=== PATIENT | male | born 1990 | race Caucasian/White ===

== ENCOUNTER 2022-02-10 15:27 | Inpatient (IN) | payer MEDICAID, SELFPAY ==
--- NOTE | ~2022-02-10 | XR_ITS ---
EXAMINATION: XR CHEST CLINICAL INFORMATION: Evaluate for pneumonia. COMPARISON: None. TECHNIQUE: AP view of the chest was obtained. FINDINGS: Normal appearance of the cardiomediastinal silhouette. There is interstitial prominence, more noticeable centrally and in the lower lungs. There is a questionable more focal hazy opacity in the left lower lobe. No pneumothorax or pleural effusion. No acute osseous abnormalities. XR/XR chest 1V IMPRESSION: Increased interstitial prominence is nonspecific and could be associated with asthma, bronchitis, reactive airways disease or atypical viral infections. There is also a questionable more focal area of airspace disease in the left lower lobe in which an early infiltrate cannot be excluded.
[2022-02-10 15:56] VITALS: BP 138/62; PULSE 112; RESP 22; TEMP 36.8; O2SAT 93; BMI 22.8
--- NOTE | 2022-02-10 16:02 | ECG_ITS ---
Test Reason : SHORTNESS OF BREATH Blood Pressure : / mmHG Vent. Rate : 096 BPM Atrial Rate : 096 BPM P-R Int : 162 ms QRS Dur : 084 ms QT Int : 322 ms P-R-T Axes : 077 077 069 degrees QTc Int : 406 ms Normal sinus rhythm Normal ECG No previous ECGs available Referred By: Zi Gongora Electronically Signed By:SHAHANA MATHUR
--- NOTE | 2022-02-10 16:03 | ED_ITS ---
HPI - General Adult General Chief complaint: Dyspnea <JULIANNE Razo - Last Filed: 02/11/22 08:12> Stated complaint: diff. breathing <JULIANNE Razo - Last Filed: 02/11/22 08:12> Time Seen by Provider: 02/10/22 15:59 <JULIANNE Razo - Last Filed: 02/11/22 08:12> Source: patient <Amynaomi Waldropzahraa Flores CNP - Last Filed: 02/10/22 18:05> Mode of arrival: ambulatory <Amy Flores CNP - Last Filed: 02/10/22 18:05> Limitations: no limitations <Amy Flores CNP - Last Filed: 02/10/22 18:05> History of Present Illness HPI narrative: Patient is a 31-year-old male presenting to emergency department for evaluation of difficulty breathing. States that about 1 week ago he developed into the, this improved on its own. Over the past 2 days and began developing shortness of breath and wheezing, he trialed his sister's nebulizer machine without significant improvement. He denies any past history of asthma or reactive airway disease. Denies fevers, chills, nasal congestion, rhinorrhea, ear pain, sore throat, chest pain/chest tightness, palpitations, nausea, vomiting, abdominal pain, lower extremity edema. Reports infrequent cigarette smoking, denies IV drug use, denies personal history of cancer/DVT/PE, denies recent surgical procedures or prolonged immobilization. <Amy Flores CNP - Last Filed: 02/10/22 18:05> Related Data Home medications: Home Medications Medication Instructions Recorded Confirmed No Known Home Meds 02/10/22 02/10/22 <JULIANNE Razo - Last Filed: 02/11/22 08:12> Allergies/adverse reactions: Allergies Allergy/AdvReac Type Severity Reaction Status Date / Time No Known Allergies Allergy Verified 02/10/22 15:59 <JULIANNE Razo Last Filed: 02/11/22 08:12> Review of Systems Review of Systems: Constitutional: No weight loss, fever, chills, weakness or fatigue. HEENT: No blurred vision, double vision. No hearing loss, no ear pain, sneezing, congestion, runny nose or sore throat. Skin: No rash or itching. Cardiovascular: No chest pain, chest pressure or chest discomfort. No palpitations or pedal edema. Respiratory: Positive shortness of breath, positive cough Gastrointestinal: No nausea, vomiting or diarrhea. No abdominal pain Genitourinary: No burning micturition. No urinary frequency or incontinence. Neurologic: No headache, dizziness, syncope Musculoskeletal: No muscle pain, back pain, joint pain or stiffness. Hematologic: No bleeding or bruising. Lymphatics: No enlarged lymph nodes. <Amy Flores CNP - Last Filed: 02/10/22 18:05> Yes all other systems are reviewed and are negative <Amy Flores CNP - Last Filed: 02/10/22 18:05> [facility] Past Medical History Attestation statement: The following information was validated with the patient. <Amy Flores CNP - Last Filed: 02/10/22 18:05> Source: old records reviewed <Amy Flores CNP - Last Filed: 02/10/22 18:05> Medical History: Medical History Asthma Rickets, <JULIANNE Razo - Last Filed: 02/11/22 08:12> Social History Social History: Social History Alcohol intake: current Alcohol intake frequency: 0-2 drinks per day Patient Tobacco Use Status: Current someday Tobacco user Smoked in Last 30 Days: Yes Use of substances other than those prescribed or required for medical reasons: Yes Substance Use Type: Marijuana Substance Use Frequency: Occasionally Advance Directives: No Advance Directives Information Provided: No <JULIANNE Razo - Last Filed: 02/11/22 08:12> Physical Exam ED Vital Signs: Vital Signs - 24 hr 02/10/22 15:56 02/10/22 16:29 02/10/22 17:49 Temperature 98.3 F Pulse Rate 112 H 96 94 Respiratory Rate 22 H 10 L 20 Blood Pressure 138/62 131/86 Pulse Oximetry 93 94 BMI result Body Mass Index 22.8 <JULIANNE Razo - Last Filed: 02/11/22 08:12> Vital Signs - 24 hr 02/10/22 15:56 02/10/22 16:29 02/10/22 17:49 Temperature 98.3 F Pulse Rate 112 H 96 94 Respiratory Rate 22 H 10 L 20 Blood Pressure 138/62 131/86 Pulse Oximetry 93 94 BMI result Body Mass Index 22.8 Vital signs have been reviewed and appeared to be correct. Blood pressure normal.? Tachycardia? Respiration rate normal. Temperature normal.? Oxygen saturation normal. <Amy Flores CNP - Last Filed: 02/10/22 18:05> Appearance: Alert.?Oriented to person, place and time. No acute distress .?Normal affect. Eyes: Pupils equal, round and reactive to light.?EOMi ENT: EAC clear, TM normal bilaterally. Pharynx normal.?? Neck: Normal inspection.? Neck supple.?? CVS: Heart sounds normal. Normal heart rate and rhythm.? Pulses normal.?? Respiratory: Increased work of breathing, use of accessory muscle, inspiratory and expiratory wheezing bilaterally Abdomen: Soft and non-tender. Normoactive bowel sounds. No pulsatile mass.?? Skin: Skin warm and dry.? Normal skin color.? Extremities: No lower extremity edema.? Neuro: Moves all extremities spontaneously. Sensation intact bilaterally. CN II- XII intact. No focal neuro deficits. Ambulates with normal steady gait. <Amy Flores CNP - Last Filed: 02/10/22 18:05> Course Course Course Narrative: Patient presents to the ED for wheezing and SOB that began this morning. Intivial vital signs are 92-93% on room air and HR of 119. Labs, EKG, patient placed on oxygen, albuterol, magnesium, solumedrol ordered. patient to be brought to a room by nurse cline.. Patient has inspiratory and expiratory wheezing <JULIANNE Razo - Last Filed: 02/11/22 08:12> Reevaluation(s) Reevaluation #1: First contact with patient after rapid medical screening from Rol[facility]AKER. patient has received albuterol and Solu-Medrol, reports improvement in feelings of shortness of breath. Maintaining O2 saturation between 94-97% via nasal cannula during history and physical exam, tachcardia 110-115. EKG reveals normal sinus rhythm with nonspecific ST change in lead II, III, troponin <3.5, unlikely ACS. CBC and CMP are overall unremarkable. BNP is normal. D-dimer <150. Chest x-ray reveals increased interstitial prominence that could be associated with asthma, bronchitis, atypical viral infections, and questionable area of the left lower lobe which may be early infiltrate. Given tachycardia and tachypnea patient meets SIRS criteria, will order blood cultures and lactic acid in addition to ceftriaxone to cover bacterial pneumonia. <Amy Flores CNP - Last Filed: 02/10/22 18:05> Time: 16:48 <Amy Flores CNP - Last Filed: 02/10/22 18:05> Reevaluation #2: Patient's mother called, states that patient has a history of childhood asthma. He has not been on inhalers for many years. She does suspect that the possibility of exposure to pet dander including the cat and dog in the home where he is currently residing may be exacerbating this, he has only ever been around non allergenic dogs in his past. Walking O2 trial, O2 saturation down to 89%, at rest room air saturation 90-92%. COVID-19 and influenza testing are negative. Consulting medicine service for hospital admission, Padmini Ansari NP who accepted patient for admission. <Amy Flores CNP - Last Filed: 02/10/22 18:05> Time: 17:37 <Amy Flores CNP - Last Filed: 02/10/22 18:05> Medical Decision Making Medical Records Medical records reviewed: Yes I reviewed the patient's medical records. <Amy Flores CNP - Last Filed: 02/10/22 18:05> Lab Data Lab results reviewed: Yes I reviewed the patient's lab results. <Amy Flores CNP - Last Filed: 02/10/22 18:05> Result diagrams: : 02/11/22 07:38 02/10/22 16:15 <JULIANNE Razo - Last Filed: 02/11/22 08:12> Labs: Lab Results 02/10/22 02/10/22 02/10/22 Range/Units 16:14 16:15 16:15 WBC 7.8 (4.8-10.8) X10*3/uL RBC 5.57 (4.60-5.80) X10*6/uL Hgb 15.9 (14.0-18.0) g/dl Hct 47.8 (42.0-52.0) % MCV 85.8 (80.0-98.0) fL MCH 28.5 (27.0-33.0) pg MCHC 33.3 (31.0-36.0) g/dl RDW 12.8 (11.0-16.0) % Plt Count 273 (160-400) X10*3/uL MPV 8.9 L (9.4-12.4) fL Immature Gran % (Auto) 0.4 (0.0-0.4) % Neut % (Auto) 58.7 (45-73) % Lymph % (Auto) 18.2 L (20-40) % [place] % (Auto) 15.7 H (2-11) % Eos % (Auto) 6.4 H (0-4) % Baso % (Auto) 0.6 (0-2) % Lymph # (Auto) 1.4 (1.2-4.9) X10*3/uL [place] # (Auto) 1.2 (0.1-1.2) X10*3/uL Eos # (Auto) 0.5 H (0.0-0.4) X10*3/uL Baso # (Auto) 0.1 (0.0-0.2) X10*3/uL Abs Immat Gran (auto) 0.03 (0.00-0.03) X10*3/uL Absolute Neuts (auto) 4.6 (2.0-8.3) x10*3/uL Absolute Nucleated RBC 0.000 (0.0-0.012) X10*3/uL Nucleated RBC % (auto) 0.0 (0.0-0.2) /100WBC PT (9.9-13.0) SEC INR (0.9-1.1) APTT (24.1-38.0) SEC D-Dimer High Sensitivty NG/ML Sodium 138 (135-145) mmol/L Potassium 4.2 (3.3-5.1) mmol/L Chloride 105 (96-108) mmol/L Carbon Dioxide 26 (22-29) mmol/L Anion Gap 11 L (12-20) BUN 15 (9-16) mg/dL Creatinine 1.05 (0.5-1.4) mg/dL Estim Creat Clear Calc 97.1 Estimated GFR > 60 Random Glucose 86 (60-115) mg/dL Lactic Acid (0.5-2.0) mmol/L Calcium 10.0 (8.4-10.2) mg/dL Ferritin 159 (20-250) ng/mL Total Bilirubin 0.9 (0.0-1.0) mg/dL AST 17 (5-37) U/L ALT 24 (0-40) U/L Alkaline Phosphatase 104 (39-117) U/L Lactate Dehydrogenase 160 (118-273) U/L Troponin I High Sens (<3.5-35.0) ng/L B-Natriuretic Peptide (<100) pg/mL Total Protein 7.9 (6.5-8.0) g/dL Albumin 4.9 (3.5-5.0) g/dL Procalcitonin 0.03 ng/mL COVID-19 (NATHANAEL) (Negative) COVID-19 Clin Com Influenza Type A (MARIFER) (Negative) Influenza Type B (MARIFER) (Negative) Influenza A & B Note 02/10/22 02/10/22 02/10/22 Range/Units 16:15 16:15 17:23 WBC (4.8-10.8) X10*3/uL RBC (4.60-5.80) X10*6/uL Hgb (14.0-18.0) g/dl Hct (42.0-52.0) % MCV (80.0-98.0) fL MCH (27.0-33.0) pg MCHC (31.0-36.0) g/dl RDW (11.0-16.0) % Plt Count (160-400) X10*3/uL MPV (9.4-12.4) fL Immature Gran % (Auto) (0.0-0.4) % Neut % (Auto) (45-73) % Lymph % (Auto) (20-40) % [place] % (Auto) (2-11) % Eos % (Auto) (0-4) % Baso % (Auto) (0-2) % Lymph # (Auto) (1.2-4.9) X10*3/uL [place] # (Auto) (0.1-1.2) X10*3/uL Eos # (Auto) (0.0-0.4) X10*3/uL Baso # (Auto) (0.0-0.2) X10*3/uL Abs Immat Gran (auto) (0.00-0.03) X10*3/uL Absolute Neuts (auto) (2.0-8.3) x10*3/uL Absolute Nucleated RBC (0.0-0.012) X10*3/uL Nucleated RBC % (auto) (0.0-0.2) /100WBC PT 12.3 (9.9-13.0) SEC INR 1.1 (0.9-1.1) APTT 34.9 (24.1-38.0) SEC D-Dimer High Sensitivty < 150 NG/ML Sodium (135-145) mmol/L Potassium (3.3-5.1) mmol/L Chloride (96-108) mmol/L Carbon Dioxide (22-29) mmol/L Anion Gap (12-20) BUN (9-16) mg/dL Creatinine (0.5-1.4) mg/dL Estim Creat Clear Calc Estimated GFR Random Glucose (60-115) mg/dL Lactic Acid 1.0 (0.5-2.0) mmol/L Calcium (8.4-10.2) mg/dL Ferritin (20-250) ng/mL Total Bilirubin (0.0-1.0) mg/dL AST (5-37) U/L ALT (0-40) U/L Alkaline Phosphatase (39-117) U/L Lactate Dehydrogenase (118-273) U/L Troponin I High Sens < 3.5 (<3.5-35.0) ng/L B-Natriuretic Peptide 14 (<100) pg/mL Total Protein (6.5-8.0) g/dL Albumin (3.5-5.0) g/dL Procalcitonin ng/mL COVID-19 (NATHANAEL) (Negative) COVID-19 Clin Com Influenza Type A (MARIFER) (Negative) Influenza Type B (MARIFER) (Negative) Influenza A & B Note 02/10/22 02/10/22 Range/Units 17:23 17:23 WBC (4.8-10.8) X10*3/uL RBC (4.60-5.80) X10*6/uL Hgb (14.0-18.0) g/dl Hct (42.0-52.0) % MCV (80.0-98.0) fL MCH (27.0-33.0) pg MCHC (31.0-36.0) g/dl RDW (11.0-16.0) % Plt Count (160-400) X10*3/uL MPV (9.4-12.4) fL Immature Gran % (Auto) (0.0-0.4) % Neut % (Auto) (45-73) % Lymph % (Auto) (20-40) % [place] % (Auto) (2-11) % Eos % (Auto) (0-4) % Baso % (Auto) (0-2) % Lymph # (Auto) (1.2-4.9) X10*3/uL [place] # (Auto) (0.1-1.2) X10*3/uL Eos # (Auto) (0.0-0.4) X10*3/uL Baso # (Auto) (0.0-0.2) X10*3/uL Abs Immat Gran (auto) (0.00-0.03) X10*3/uL Absolute Neuts (auto) (2.0-8.3) x10*3/uL Absolute Nucleated RBC (0.0-0.012) X10*3/uL Nucleated RBC % (auto) (0.0-0.2) /100WBC PT (9.9-13.0) SEC INR (0.9-1.1) APTT (24.1-38.0) SEC D-Dimer High Sensitivty NG/ML Sodium (135-145) mmol/L Potassium (3.3-5.1) mmol/L Chloride (96-108) mmol/L Carbon Dioxide (22-29) mmol/L Anion Gap (12-20) BUN (9-16) mg/dL Creatinine (0.5-1.4) mg/dL Estim Creat Clear Calc Estimated GFR Random Glucose (60-115) mg/dL Lactic Acid (0.5-2.0) mmol/L Calcium (8.4-10.2) mg/dL Ferritin (20-250) ng/mL Total Bilirubin (0.0-1.0) mg/dL AST (5-37) U/L ALT (0-40) U/L Alkaline Phosphatase (39-117) U/L Lactate Dehydrogenase (118-273) U/L Troponin I High Sens (<3.5-35.0) ng/L B-Natriuretic Peptide (<100) pg/mL Total Protein (6.5-8.0) g/dL Albumin (3.5-5.0) g/dL Procalcitonin ng/mL COVID-19 (NATHANAEL) Negative (Negative) COVID-19 Clin Com See Note Influenza Type A (MARIFER) Negative (Negative) Influenza Type B (MARIFER) Negative (Negative) Influenza A & B Note See Note <JULIANNE Razo - Last Filed: 02/11/22 08:12> Lab Results 02/10/22 02/10/22 02/10/22 Range/Units 16:14 16:15 16:15 WBC 7.8 (4.8-10.8) X10*3/uL RBC 5.57 (4.60-5.80) X10*6/uL Hgb 15.9 (14.0-18.0) g/dl Hct 47.8 (42.0-52.0) % MCV 85.8 (80.0-98.0) fL MCH 28.5 (27.0-33.0) pg MCHC 33.3 (31.0-36.0) g/dl RDW 12.8 (11.0-16.0) % Plt Count 273 (160-400) X10*3/uL MPV 8.9 L (9.4-12.4) fL Immature Gran % (Auto) 0.4 (0.0-0.4) % Neut % (Auto) 58.7 (45-73) % Lymph % (Auto) 18.2 L (20-40) % [place] % (Auto) 15.7 H (2-11) % Eos % (Auto) 6.4 H (0-4) % Baso % (Auto) 0.6 (0-2) % Lymph # (Auto) 1.4 (1.2-4.9) X10*3/uL [place] # (Auto) 1.2 (0.1-1.2) X10*3/uL Eos # (Auto) 0.5 H (0.0-0.4) X10*3/uL Baso # (Auto) 0.1 (0.0-0.2) X10*3/uL Abs Immat Gran (auto) 0.03 (0.00-0.03) X10*3/uL Absolute Neuts (auto) 4.6 (2.0-8.3) x10*3/uL Absolute Nucleated RBC 0.000 (0.0-0.012) X10*3/uL Nucleated RBC % (auto) 0.0 (0.0-0.2) /100WBC PT (9.9-13.0) SEC INR (0.9-1.1) APTT (24.1-38.0) SEC D-Dimer High Sensitivty NG/ML Sodium 138 (135-145) mmol/L Potassium 4.2 (3.3-5.1) mmol/L Chloride 105 (96-108) mmol/L Carbon Dioxide 26 (22-29) mmol/L Anion Gap 11 L (12-20) BUN 15 (9-16) mg/dL Creatinine 1.05 (0.5-1.4) mg/dL Estim Creat Clear Calc 97.1 Estimated GFR > 60 Random Glucose 86 (60-115) mg/dL Lactic Acid (0.5-2.0) mmol/L Calcium 10.0 (8.4-10.2) mg/dL Ferritin 159 (20-250) ng/mL Total Bilirubin 0.9 (0.0-1.0) mg/dL AST 17 (5-37) U/L ALT 24 (0-40) U/L Alkaline Phosphatase 104 (39-117) U/L Lactate Dehydrogenase 160 (118-273) U/L Troponin I High Sens (<3.5-35.0) ng/L B-Natriuretic Peptide (<100) pg/mL Total Protein 7.9 (6.5-8.0) g/dL Albumin 4.9 (3.5-5.0) g/dL Procalcitonin 0.03 ng/mL COVID-19 (NATHANAEL) (Negative) COVID-19 Clin Com Influenza Type A (MARIFER) (Negative) Influenza Type B (MARIFER) (Negative) Influenza A & B Note 02/10/22 02/10/22 02/10/22 Range/Units 16:15 16:15 17:23 WBC (4.8-10.8) X10*3/uL RBC (4.60-5.80) X10*6/uL Hgb (14.0-18.0) g/dl Hct (42.0-52.0) % MCV (80.0-98.0) fL MCH (27.0-33.0) pg MCHC (31.0-36.0) g/dl RDW (11.0-16.0) % Plt Count (160-400) X10*3/uL MPV (9.4-12.4) fL Immature Gran % (Auto) (0.0-0.4) % Neut % (Auto) (45-73) % Lymph % (Auto) (20-40) % [place] % (Auto) (2-11) % Eos % (Auto) (0-4) % Baso % (Auto) (0-2) % Lymph # (Auto) (1.2-4.9) X10*3/uL [place] # (Auto) (0.1-1.2) X10*3/uL Eos # (Auto) (0.0-0.4) X10*3/uL Baso # (Auto) (0.0-0.2) X10*3/uL Abs Immat Gran (auto) (0.00-0.03) X10*3/uL Absolute Neuts (auto) (2.0-8.3) x10*3/uL Absolute Nucleated RBC (0.0-0.012) X10*3/uL Nucleated RBC % (auto) (0.0-0.2) /100WBC PT 12.3 (9.9-13.0) SEC INR 1.1 (0.9-1.1) APTT 34.9 (24.1-38.0) SEC D-Dimer High Sensitivty < 150 NG/ML Sodium (135-145) mmol/L Potassium (3.3-5.1) mmol/L Chloride (96-108) mmol/L Carbon Dioxide (22-29) mmol/L Anion Gap (12-20) BUN (9-16) mg/dL Creatinine (0.5-1.4) mg/dL Estim Creat Clear Calc Estimated GFR Random Glucose (60-115) mg/dL Lactic Acid 1.0 (0.5-2.0) mmol/L Calcium (8.4-10.2) mg/dL Ferritin (20-250) ng/mL Total Bilirubin (0.0-1.0) mg/dL AST (5-37) U/L ALT (0-40) U/L Alkaline Phosphatase (39-117) U/L Lactate Dehydrogenase (118-273) U/L Troponin I High Sens < 3.5 (<3.5-35.0) ng/L B-Natriuretic Peptide 14 (<100) pg/mL Total Protein (6.5-8.0) g/dL Albumin (3.5-5.0) g/dL Procalcitonin ng/mL COVID-19 (NATHANAEL) (Negative) COVID-19 Clin Com Influenza Type A (MARIFER) (Negative) Influenza Type B (MARIFER) (Negative) Influenza A & B Note 02/10/22 02/10/22 Range/Units 17:23 17:23 WBC (4.8-10.8) X10*3/uL RBC (4.60-5.80) X10*6/uL Hgb (14.0-18.0) g/dl Hct (42.0-52.0) % MCV (80.0-98.0) fL MCH (27.0-33.0) pg MCHC (31.0-36.0) g/dl RDW (11.0-16.0) % Plt Count (160-400) X10*3/uL MPV (9.4-12.4) fL Immature Gran % (Auto) (0.0-0.4) % Neut % (Auto) (45-73) % Lymph % (Auto) (20-40) % [place] % (Auto) (2-11) % Eos % (Auto) (0-4) % Baso % (Auto) (0-2) % Lymph # (Auto) (1.2-4.9) X10*3/uL [place] # (Auto) (0.1-1.2) X10*3/uL Eos # (Auto) (0.0-0.4) X10*3/uL Baso # (Auto) (0.0-0.2) X10*3/uL Abs Immat Gran (auto) (0.00-0.03) X10*3/uL Absolute Neuts (auto) (2.0-8.3) x10*3/uL Absolute Nucleated RBC (0.0-0.012) X10*3/uL Nucleated RBC % (auto) (0.0-0.2) /100WBC PT (9.9-13.0) SEC INR (0.9-1.1) APTT (24.1-38.0) SEC D-Dimer High Sensitivty NG/ML Sodium (135-145) mmol/L Potassium (3.3-5.1) mmol/L Chloride (96-108) mmol/L Carbon Dioxide (22-29) mmol/L Anion Gap (12-20) BUN (9-16) mg/dL Creatinine (0.5-1.4) mg/dL Estim Creat Clear Calc Estimated GFR Random Glucose (60-115) mg/dL Lactic Acid (0.5-2.0) mmol/L Calcium (8.4-10.2) mg/dL Ferritin (20-250) ng/mL Total Bilirubin (0.0-1.0) mg/dL AST (5-37) U/L ALT (0-40) U/L Alkaline Phosphatase (39-117) U/L Lactate Dehydrogenase (118-273) U/L Troponin I High Sens (<3.5-35.0) ng/L B-Natriuretic Peptide (<100) pg/mL Total Protein (6.5-8.0) g/dL Albumin (3.5-5.0) g/dL Procalcitonin ng/mL COVID-19 (NATHANAEL) Negative (Negative) COVID-19 Clin Com See Note Influenza Type A (MARIFER) Negative (Negative) Influenza Type B (MARIFER) Negative (Negative) Influenza A & B Note See Note <Amy Flores FIRE CLAIMS ADJUSTER - Last Filed: 02/10/22 18:05> Imaging Data Chest x-ray: Radiologist's impression: XR/XR chest 1V IMPRESSION: Increased interstitial prominence is nonspecific and could be associated with asthma, bronchitis, reactive airways disease or atypical viral infections. ? There is also a questionable more focal area of airspace disease in the left lower lobe in which an early infiltrate cannot be excluded. <Amynaomi Flores CNP - Last Filed: 02/10/22 18:05> ECG Data Attestation: I personally reviewed and interpreted this ECG as follows: <Amynaomi Flores CNP - Last Filed: 02/10/22 18:05> Prior ECG tracings: not available for review <Amynaomi Flores CNP - Last Filed: 02/10/22 18:05> Interpretation: Rate: 96 Rhythm:? Normal sinus rhythm [place]:? Normal Normal P waves.? Normal HEUY.?? Normal QRS complex.?? ST T wave :??Nonspecific ST changes in lead II and III qTC: 406 prior studies:? None The study has been interpreted contemporaneously by me. <Amynaomi Flores CNP - Last Filed: 02/10/22 18:05> Critical Care Time Critical Care Time Critical Care Time: Yes <Amynaomi Flores CNP - Last Filed: 02/10/22 18:05> Total Critical Care Time: 60 <Amynaomi Flores CNP - Last Filed: 02/10/22 18:05> Attestation: I personally attest to this time spent taking care of the patient <Amy Flores CNP - Last Filed: 02/10/22 18:05> Discharge Plan Discharge Clinical Impression: Community acquired pneumonia <JULIANNE Razo - Last Filed: 02/11/22 08:12> Patient Disposition: Admitted As Inpatient <JULIANNE Razo - Last Filed: 02/11/22 08:12>
[2022-02-10 16:21] LABS: Basophils Absolute Auto 0.1 X10*3/uL (0.0-0.2); Basophils Percent Auto 0.6 % (0-2); Eosinophils Absolute Auto 0.5 X10*3/uL (0.0-0.4); Eosinophils Percent Auto 6.4 % (0-4); Hematocrit 47.8 % (42.0-52.0); Hemoglobin 15.9 g/dl (14.0-18.0); Imm Gran Abs Auto 0.03 X10*3/uL (0.00-0.03); Imm Gran Pct Auto 0.4 % (0.0-0.4); Lymphocytes Absolute Auto 1.4 X10*3/uL (1.2-4.9); Lymphocytes Percent Auto 18.2 % (20-40); MANUAL DIFF FLAG NO; Mean Corpuscular HGB Conc 33.3 g/dl (31.0-36.0); Mean Corpuscular Hemoglobin 28.5 pg (27.0-33.0); Mean Corpuscular Volume 85.8 fL (80.0-98.0); Mean Platelet Volume 8.9 fL (9.4-12.4); Monocytes Absolute Auto 1.2 X10*3/uL (0.1-1.2); Monocytes Percent Auto 15.7 % (2-11); Neutrophils Absolute Auto 4.6 x10*3/uL (2.0-8.3); Neutrophils Percent Auto 58.7 % (45-73); Platelet Count 273 X10*3/uL (160-400); Red Blood Count 5.57 X10*6/uL (4.60-5.80); Red Cell Distribution Width 12.8 % (11.0-16.0); White Blood Count 7.8 X10*3/uL (4.8-10.8)
[2022-02-10] MEDS: methylPREDNISolone Sod Succ 125 MG/2 ML VIAL IVPUSH (16:21)
[2022-02-10] MEDS: Magnesium Sulfate/H2O 2 GM/50 ML PIGGYBACK IV (16:21)
[2022-02-10 16:27] LABS: INTERNATIONAL NORM RATIO 1.1 (0.9-1.1); Prothrombin Time 12.3 SEC (9.9-13.0)
[2022-02-10 16:29] VITALS: PULSE 96; RESP 10; O2SAT 95
[2022-02-10 16:29] LABS: Partial Thromboplastin Time 34.9 SEC (24.1-38.0)
[2022-02-10] MEDS: Albuterol/Iprat 2.5/0.5MG 3 ML AMPUL.NEB INHALE ×2 (16:29→19:58)
[2022-02-10 16:38] LABS: Alanine Aminotransferase 24 U/L (0-40); Albumin Level 4.9 g/dL (3.5-5.0); Alkaline Phosphatase 104 U/L (39-117); Anion Gap 11 (12-20); Aspartate Amino Transferase 17 U/L (5-37); Bilirubin Total 0.9 mg/dL (0.0-1.0); Blood Urea Nitrogen 15 mg/dL (9-16); Carbon Dioxide 26 mmol/L (22-29); Chloride 105 mmol/L (96-108); Creatinine Clr Calc Pharmacy 97.1; Estimated Glomerular Filt Rate > 60; Glucose Random 86 mg/dL (60-115); Lactate Dehydrogenase 160 U/L (118-273); Potassium 4.2 mmol/L (3.3-5.1); Sodium 138 mmol/L (135-145); Total Protein 7.9 g/dL (6.5-8.0)
[2022-02-10 16:44] LABS: B Type Natriuretic Peptide 14 pg/mL (<100); Troponin-I High Sensitivity < 3.5 ng/L (<3.5-35.0)
[2022-02-10 16:47] LABS: D Dimer High Sensitivity < 150 NG/ML
[2022-02-10 16:56] LABS: Procalcitonin 0.03 ng/mL
[2022-02-10 16:58] LABS: Ferritin 159 ng/mL (20-250)
[2022-02-10] MEDS: cefTRIAXone sodium 1 GM in 0.9 % Sodium Chloride 50 ML IV (17:40)
[2022-02-10 17:49] VITALS: BP 131/86; PULSE 94; RESP 20; O2SAT 94
[2022-02-10 17:50] LABS: COVID-19 Test Negative (Negative); IDNOW Serial# 55D5AD1C; Influenza A Negative (Negative); Influenza B2 Negative (Negative)
--- NOTE | 2022-02-10 18:09 | PHA.MEDREC ---
Pharmacy Consult ? Medication Reconciliation Pharmacy has completed the medication reconciliation.
--- NOTE | 2022-02-10 19:13 | PHA.MEDREC ---
Pharmacy Consult ? Medication Reconciliation Pharmacy has completed the medication reconciliation.
--- NOTE | 2022-02-10 19:18 | P.HPHOSP_ITS ---
History of Present Illness Date of Service: 02/10/22 Chief Complaint: Shortness of breath 31-year-old male with a past medical history of cannabis use presented to the hospital with a chief complaint of shortness of breath. Patient reported that he has been having shortness over the past 1 week which has been gradually worsening. Mentioned that he tried nebulizers at home with no significant improvement. For the past 2 days he has been having increase the symptoms as noted with cough. Denies any fevers and chills. Denies any sputum production Denies any sick contacts. Denies any recent travel. Denies any chest pain palpitations lightheadedness or dizziness. Denies any GI symptoms. Review of all other systems is negative except mentioned above ER course: Per ER team patient on presentation noted to be in mild respiratory distress, tachypneic, tachycardic; D-dimer was negative; EKG was nonischemic; troponin negative; patient noted to have bilateral inspiratory and expiratory wheezes; patient was saturating 89% upon ambulation; patient was given nebulizations steroids; chest x-ray showed possible pneumonia/increased interstitial markings; given antibiotics. Admitted for further management. [facility] Medical History Asthma Rickets, Pertinent family history: Adopted Social History Advance Directives: No Advance Directives Information Provided: No Meds Allergies Allergy/AdvReac Type Severity Reaction Status Date / Time No Known Allergies Allergy Verified 02/10/22 15:59 Active Medications: Current Medications Pharmacy Consult (Consult Rx Perform Med Rec) 1 each MISCELLANE ONCE PRN PRN Reason: Consult order Home Medications Medication Instructions Recorded Confirmed Last Taken Type No Known Home Meds 02/10/22 02/10/22 Unknown History Physical Exam Vital Signs and Narrative: Vital Signs: Last Vital Signs Temp 98.3 F 02/10/22 15:56 Pulse 94 02/10/22 17:49 Resp 20 02/10/22 17:49 BP 131/86 02/10/22 17:49 Pulse Ox 94 02/10/22 17:49 BMI result Body Mass Index 22.8 Gen: Appears be in no acute distress. On supplemental oxygen. Breathing comfortably. Speaks in full sentences. HEENT: NCAT, Moist mucosa. Pulmonary: Coarse breath sounds. Wheezes present. CVS: Normal S1-S2 Abdomen: BS+, Soft, Nontender Extremities: Warm well perfused Neuro: Alert and awake. Results Labs CBC and Chem 7: 02/10/22 16:15 02/10/22 16:15 Labs: Laboratory Results - last 24 hr 02/10/22 02/10/22 02/10/22 16:14 16:15 16:15 MCV 85.8 MCH 28.5 MCHC 33.3 RDW 12.8 Plt Count 273 MPV 8.9 L Immature Gran % (Auto) 0.4 Neut % (Auto) 58.7 Lymph % (Auto) 18.2 L [place] % (Auto) 15.7 H Eos % (Auto) 6.4 H Baso % (Auto) 0.6 Lymph # (Auto) 1.4 [place] # (Auto) 1.2 Eos # (Auto) 0.5 H Baso # (Auto) 0.1 Abs Immat Gran (auto) 0.03 Absolute Neuts (auto) 4.6 Absolute Nucleated RBC 0.000 Nucleated RBC % (auto) 0.0 PT INR APTT D-Dimer High Sensitivty Anion Gap 11 L Estim Creat Clear Calc 97.1 Estimated GFR > 60 Random Glucose 86 Lactic Acid Calcium 10.0 Ferritin 159 Total Bilirubin 0.9 AST 17 ALT 24 Alkaline Phosphatase 104 Lactate Dehydrogenase 160 Troponin I High Sens B-Natriuretic Peptide Total Protein 7.9 Albumin 4.9 Procalcitonin 0.03 COVID-19 (NATHANAEL) COVID-19 Clin Com Influenza Type A (MARIFER) Influenza Type B (MARIFER) Influenza A & B Note 02/10/22 02/10/22 02/10/22 16:15 16:15 17:23 MCV MCH MCHC RDW Plt Count MPV Immature Gran % (Auto) Neut % (Auto) Lymph % (Auto) [place] % (Auto) Eos % (Auto) Baso % (Auto) Lymph # (Auto) [place] # (Auto) Eos # (Auto) Baso # (Auto) Abs Immat Gran (auto) Absolute Neuts (auto) Absolute Nucleated RBC Nucleated RBC % (auto) PT 12.3 INR 1.1 APTT 34.9 D-Dimer High Sensitivty < 150 Anion Gap Estim Creat Clear Calc Estimated GFR Random Glucose Lactic Acid 1.0 Calcium Ferritin Total Bilirubin AST ALT Alkaline Phosphatase Lactate Dehydrogenase Troponin I High Sens < 3.5 B-Natriuretic Peptide 14 Total Protein Albumin Procalcitonin COVID-19 (NATHANAEL) COVID-19 Clin Com Influenza Type A (MARIFER) Influenza Type B (MARIFER) Influenza A & B Note 02/10/22 02/10/22 17:23 17:23 MCV MCH MCHC RDW Plt Count MPV Immature Gran % (Auto) Neut % (Auto) Lymph % (Auto) [place] % (Auto) Eos % (Auto) Baso % (Auto) Lymph # (Auto) [place] # (Auto) Eos # (Auto) Baso # (Auto) Abs Immat Gran (auto) Absolute Neuts (auto) Absolute Nucleated RBC Nucleated RBC % (auto) PT INR APTT D-Dimer High Sensitivty Anion Gap Estim Creat Clear Calc Estimated GFR Random Glucose Lactic Acid Calcium Ferritin Total Bilirubin AST ALT Alkaline Phosphatase Lactate Dehydrogenase Troponin I High Sens B-Natriuretic Peptide Total Protein Albumin Procalcitonin COVID-19 (NATHANAEL) Negative COVID-19 Clin Com See Note Influenza Type A (MARIFER) Negative Influenza Type B (MARIFER) Negative Influenza A & B Note See Note Imaging Radiologist's Impressions: Impressions Chest X-Ray 02/10/22 16:23 IMPRESSION: Increased interstitial prominence is nonspecific and could be associated with asthma, bronchitis, reactive airways disease or atypical viral infections. There is also a questionable more focal area of airspace disease in the left lower lobe in which an early infiltrate cannot be excluded. Assessment and Plan (1) Community acquired pneumonia: Status: Acute (2) Asthma exacerbation: Status: Acute Plan 31-year-old male with a past medical history of cannabis use presented to the hospital with a chief complaint of shortness of breath/cough. Noted to have community-acquired pneumonia. Admitted for further management. Community-acquired pneumonia: Continue ceftriaxone and azithromycin. Follow up cultures. Influenza a and COVID-19 negative Cough suppressants Acute asthma exacerbation: DuoNebs p.r.n. and standing Solu-Medrol IV q.i.d. Supplemental oxygen p.r.n. Exercise pulse oximetry DVT prophylaxis: Lovenox Code status: Full code Quality Stroke Does the patient have a stroke diagnosis?: No VTE Prior VTE?: No VTE Risk Level:: Medical - moderate - high VTE Device Contraindication: Treatment Not Indicated VTE Drug Contraindication: N/A - Med Ordered
[2022-02-10 19:58] VITALS: PULSE 100; RESP 12; O2SAT 95
[2022-02-10] MEDS: Azithromycin 500 MG TABLET PO (20:14)
[2022-02-10] MEDS: Famotidine 20 MG TABLET PO (20:14)
[2022-02-10] MEDS: Enoxaparin Sodium 40 MG/0.4 ML SYRINGE SUBCUT (20:15)
[2022-02-10] MEDS: 0.9 % Sodium Chloride Flush 3 ML SYRINGE IVFLUSH (23:01)
[2022-02-10] MEDS: methylPREDNISolone Sod Succ 40 MG/ML VIAL IVPUSH (23:01)
[2022-02-10 23:07] VITALS: BP 120/71; PULSE 88; RESP 18; O2SAT 96
[2022-02-11] VITALS (17 sets, daily range): BP systolic 109–147; BP diastolic 53–82; PULSE 71–105; RESP 13–20; TEMP 36.4–37.1; O2SAT 92–98
[2022-02-11 01:14] LABS: Amphetamine Screen Urine Not Detected (Not Detect); Barbiturates, Urine Not Detected (Not Detect); Benzodiazepines Screen Urine Not Detected (Not Detect); Cannabinoid Screen Urine POSITIVE (Not Detect); Cocaine Screen Urine Not Detected (Not Detect); Fentanyl, urine Not Detected (Not Detect); Opiate Screen Urine Not Detected (Not Detect); Phencyclidine Screen Urine Not Detected (Not Detect)
[2022-02-11] MEDS: Benzonatate 100 MG CAPSULE PO (01:18)
[2022-02-11] MEDS: Albuterol/Iprat 2.5/0.5MG 3 ML AMPUL.NEB INHALE ×6 (01:34→23:09)
--- NOTE | 2022-02-11 01:56 | PC.NURSE ---
pt wheezing still present, but not as severe since getting nebulizer. reports easier work of breathing. Decreased coughing.
[2022-02-11] MEDS: methylPREDNISolone Sod Succ 40 MG/ML VIAL IVPUSH ×4 (04:52→20:38)
[2022-02-11 08:04] LABS: Basophils Percent Auto 0.1 % (0-2); Hematocrit 43.5 % (42.0-52.0); Hemoglobin 14.6 g/dl (14.0-18.0); Imm Gran Abs Auto 0.04 X10*3/uL (0.00-0.03); Imm Gran Pct Auto 0.4 % (0.0-0.4); Lymphocytes Absolute Auto 0.6 X10*3/uL (1.2-4.9); Lymphocytes Percent Auto 6.1 % (20-40); MANUAL DIFF FLAG SCAN; Mean Corpuscular HGB Conc 33.6 g/dl (31.0-36.0); Mean Corpuscular Hemoglobin 28.8 pg (27.0-33.0); Mean Corpuscular Volume 85.8 fL (80.0-98.0); Monocytes Absolute Auto 0.2 X10*3/uL (0.1-1.2); Monocytes Percent Auto 1.6 % (2-11); Neutrophils Absolute Auto 8.6 x10*3/uL (2.0-8.3); Neutrophils Percent Auto 91.8 % (45-73); Platelet Count 270 X10*3/uL (160-400); Red Blood Count 5.07 X10*6/uL (4.60-5.80); SCAN SMEAR FLAG 1; White Blood Count 9.4 X10*3/uL (4.8-10.8)
[2022-02-11 08:27] LABS: Alanine Aminotransferase 20 U/L (0-40); Albumin Level 4.4 g/dL (3.5-5.0); Alkaline Phosphatase 85 U/L (39-117); Anion Gap 15 (12-20); Aspartate Amino Transferase 14 U/L (5-37); Bilirubin Total 0.7 mg/dL (0.0-1.0); Blood Urea Nitrogen 17 mg/dL (9-16); Calcium 9.6 mg/dL (8.4-10.2); Carbon Dioxide 22 mmol/L (22-29); Chloride 104 mmol/L (96-108); Creatinine Clr Calc Pharmacy 112.1; Estimated Glomerular Filt Rate > 60; Glucose Random 202 mg/dL (60-115); Potassium 4.5 mmol/L (3.3-5.1); Sodium 136 mmol/L (135-145); Total Protein 7.3 g/dL (6.5-8.0)
[2022-02-11 08:45] LABS: SLIDE REVIEW VERIFIED
[2022-02-11] MEDS: 0.9 % Sodium Chloride Flush 3 ML SYRINGE IVFLUSH ×2 (09:04→18:50)
[2022-02-11] MEDS: Famotidine 20 MG TABLET PO ×2 (09:04→20:38)
--- NOTE | 2022-02-11 11:12 | P.PNIM_ITS ---
Subjective Subjective Date of Service: 02/11/22 Interval History: admitted for acute asthma exacerbation, complaining of persistent shortness of breath, coughing spells, denies fever chills, no chest pain, no palpitation,feels right facial swelling and pressure, denies allergy symptoms of runny nose itching watery eyes, have stable asthma. Review of Systems Review of Systems: Yes all other systems are reviewed and are negative Physical Exam Vital Signs: Vital Signs: Last Vital Signs Temp 97.6 F 02/11/22 09:11 Pulse 98 02/11/22 09:11 Resp 18 02/11/22 09:11 BP 147/78 H 02/11/22 09:11 Pulse Ox 96 02/11/22 09:11 BMI result Body Mass Index 22.8 Const: Other: General awake alert coughing,no acute distress. mild right facial swelling and tenderness Neck supple no JVD. CVS regular rate rhythm, Respiratory lungs bilateral expiratory wheeze, decreased air entry, no use of accessory muscles Gastrointestinal abdomen soft, nontender, bowel sounds audible Extremities no edema. Neuro nonfocal Skin no rash psych appropriate affect Objective Data Active Medications Acetaminophen (Acetaminophen 325 Mg Tablet) 650 mg PO Q6H PRN PRN Reason: Pain, Mild (Pain Scale 1-3) Albuterol/Ipratropium (Albuterol/Iprat 2.5/0.5mg 3 Ml Ampul.Neb) 3 ml INHALE RQ4H WHILE AWAKE [facility] Last Admin: 02/11/22 06:43 Dose: 3 ml Documented by: NANCY Albuterol/Ipratropium (Albuterol/Iprat 2.5/0.5mg 3 Ml Ampul.Neb) 3 ml INHALE RQ4H PRN PRN Reason: Shortness of Breath/Wheezing Last Admin: 02/11/22 01:34 Dose: 3 ml Documented by: NANCY Azithromycin (Azithromycin 500 Mg Tablet) 500 mg PO Q24H [facility] Last Admin: 02/10/22 20:14 Dose: 500 mg Documented by: DAE Benzonatate (Benzonatate 100 Mg Capsule) 100 mg PO TID PRN PRN Reason: Cough Last Admin: 02/11/22 01:18 Dose: 100 mg Documented by: EUN Enoxaparin Sodium (Enoxaparin Sodium 40 Mg/0.4 Ml Syringe) 40 mg SUBCUT Q24H [facility] Last Admin: 02/10/22 20:15 Dose: 40 mg Documented by: DAE Famotidine (Famotidine 20 Mg Tablet) 20 mg PO BID [facility] Last Admin: 02/11/22 09:04 Dose: 20 mg Documented by: DARIUS Ceftriaxone Sodium 1 gm/ (Sodium Chloride) 100 mls @ 200 mls/hr IV Q24H [facility] Melatonin (Melatonin 3 Mg Tablet) 6 mg PO BEDTIME PRN PRN Reason: Insomnia Methylprednisolone Sodium Succinate (Methylprednisolone Sod Succ 40 Mg/Ml Vial) 40 mg IVPUSH Q6H [facility] Last Admin: 02/11/22 10:11 Dose: 40 mg Documented by: DARIUS Pharmacy Consult (Consult Rx Perform Med Rec) 1 each MISCELLANE ONCE PRN PRN Reason: Consult order Senna (Sennosides 8.6 Mg Tablet) 17.2 mg PO BEDTIME PRN PRN Reason: Constipation Sodium Chloride (0.9 % Sodium Chloride Flush 3 Ml Syringe) 3 ml IVFLUSH QSHIFT [facility] Last Admin: 02/11/22 09:04 Dose: 3 ml Documented by: DARIUS Labs CBC & Chem 7: 02/11/22 07:38 02/11/22 07:38 Labs: Laboratory Results - last 24 hr 02/10/22 02/10/22 02/10/22 16:14 16:15 16:15 MCV 85.8 MCH 28.5 MCHC 33.3 RDW 12.8 Plt Count 273 MPV 8.9 L Immature Gran % (Auto) 0.4 Neut % (Auto) 58.7 Lymph % (Auto) 18.2 L [place] % (Auto) 15.7 H Eos % (Auto) 6.4 H Baso % (Auto) 0.6 Lymph # (Auto) 1.4 [place] # (Auto) 1.2 Eos # (Auto) 0.5 H Baso # (Auto) 0.1 Abs Immat Gran (auto) 0.03 Absolute Neuts (auto) 4.6 Absolute Nucleated RBC 0.000 Nucleated RBC % (auto) 0.0 Smear Tech's Comments PT INR APTT D-Dimer High Sensitivty Anion Gap 11 L Estim Creat Clear Calc 97.1 Estimated GFR > 60 Random Glucose 86 Lactic Acid Calcium 10.0 Ferritin 159 Total Bilirubin 0.9 AST 17 ALT 24 Alkaline Phosphatase 104 Lactate Dehydrogenase 160 Troponin I High Sens B-Natriuretic Peptide Total Protein 7.9 Albumin 4.9 Procalcitonin 0.03 Urine Opiates Screen Urine Fentanyl Screen Ur Barbiturates Screen Ur Phencyclidine Scrn Ur Amphetamines Screen U Benzodiazepines Scrn Urine Cocaine Screen U Marijuana (THC) Screen COVID-19 (NATHANAEL) COVID-19 Clin Com Influenza Type A (MARIFER) Influenza Type B (MARIFER) Influenza A & B Note 02/10/22 02/10/22 02/10/22 16:15 16:15 17:23 MCV MCH MCHC RDW Plt Count MPV Immature Gran % (Auto) Neut % (Auto) Lymph % (Auto) [place] % (Auto) Eos % (Auto) Baso % (Auto) Lymph # (Auto) [place] # (Auto) Eos # (Auto) Baso # (Auto) Abs Immat Gran (auto) Absolute Neuts (auto) Absolute Nucleated RBC Nucleated RBC % (auto) Smear Tech's Comments PT 12.3 INR 1.1 APTT 34.9 D-Dimer High Sensitivty < 150 Anion Gap Estim Creat Clear Calc Estimated GFR Random Glucose Lactic Acid 1.0 Calcium Ferritin Total Bilirubin AST ALT Alkaline Phosphatase Lactate Dehydrogenase Troponin I High Sens < 3.5 B-Natriuretic Peptide 14 Total Protein Albumin Procalcitonin Urine Opiates Screen Urine Fentanyl Screen Ur Barbiturates Screen Ur Phencyclidine Scrn Ur Amphetamines Screen U Benzodiazepines Scrn Urine Cocaine Screen U Marijuana (THC) Screen COVID-19 (NATHANAEL) COVID-19 Clin Com Influenza Type A (MARIFER) Influenza Type B (MARIFER) Influenza A & B Note 02/10/22 02/10/22 02/11/22 17:23 17:23 00:51 MCV MCH MCHC RDW Plt Count MPV Immature Gran % (Auto) Neut % (Auto) Lymph % (Auto) [place] % (Auto) Eos % (Auto) Baso % (Auto) Lymph # (Auto) [place] # (Auto) Eos # (Auto) Baso # (Auto) Abs Immat Gran (auto) Absolute Neuts (auto) Absolute Nucleated RBC Nucleated RBC % (auto) Smear Tech's Comments PT INR APTT D-Dimer High Sensitivty Anion Gap Estim Creat Clear Calc Estimated GFR Random Glucose Lactic Acid Calcium Ferritin Total Bilirubin AST ALT Alkaline Phosphatase Lactate Dehydrogenase Troponin I High Sens B-Natriuretic Peptide Total Protein Albumin Procalcitonin Urine Opiates Screen Not Detected Urine Fentanyl Screen Not Detected Ur Barbiturates Screen Not Detected Ur Phencyclidine Scrn Not Detected Ur Amphetamines Screen Not Detected U Benzodiazepines Scrn Not Detected Urine Cocaine Screen Not Detected U Marijuana (THC) Screen POSITIVE H COVID-19 (NATHANAEL) Negative COVID-19 Clin Com See Note Influenza Type A (MARIFER) Negative Influenza Type B (MARIFER) Negative Influenza A & B Note See Note 02/11/22 02/11/22 07:38 07:38 MCV 85.8 MCH 28.8 MCHC 33.6 RDW 13.0 Plt Count 270 MPV 9.0 L Immature Gran % (Auto) 0.4 Neut % (Auto) 91.8 H Lymph % (Auto) 6.1 L [place] % (Auto) 1.6 L Eos % (Auto) 0.0 Baso % (Auto) 0.1 Lymph # (Auto) 0.6 L [place] # (Auto) 0.2 Eos # (Auto) 0.0 Baso # (Auto) 0.0 Abs Immat Gran (auto) 0.04 H Absolute Neuts (auto) 8.6 H Absolute Nucleated RBC 0.000 Nucleated RBC % (auto) 0.0 Smear Tech's Comments VERIFIED PT INR APTT D-Dimer High Sensitivty Anion Gap 15 Estim Creat Clear Calc 112.1 Estimated GFR > 60 Random Glucose 202 H D Lactic Acid Calcium 9.6 Ferritin Total Bilirubin 0.7 AST 14 ALT 20 Alkaline Phosphatase 85 Lactate Dehydrogenase Troponin I High Sens B-Natriuretic Peptide Total Protein 7.3 Albumin 4.4 Procalcitonin Urine Opiates Screen Urine Fentanyl Screen Ur Barbiturates Screen Ur Phencyclidine Scrn Ur Amphetamines Screen U Benzodiazepines Scrn Urine Cocaine Screen U Marijuana (THC) Screen COVID-19 (NATHANAEL) COVID-19 Clin Com Influenza Type A (MARIFER) Influenza Type B (MARIFER) Influenza A & B Note Assessment and Plan (1) Asthma exacerbation: Status: Acute (2) Community acquired pneumonia: Status: Acute Plan 31-year-old male with a past medical history of cannabis use presented to the hospital with a chief complaint of shortness of breath/cough.? Noted to have community-acquired pneumonia.? Admitted for further management. Sepsis due to community-acquired pneumonia patient met sepsis criteria due to tachypnea, tachycardia related to pneumonia, afebrile with normal WBC persistent shortness of breath and cough Continue IV ceftriaxone and azithromycin. ?right facial tenderness likely sinusitis that will be covered with above antibiotic, Follow blood cultures ,Influenza A and COVID-19 negative continue supportive care with antiemetics analgesics and Cough suppressants Acute asthma exacerbation:? patient has history of childhood asthma remains stable up until this episode,, likely exacerbated by exposure to pets, currently residing at sister's house. persistent shortness of breath and wheeze continue DuoNebs p.r.n. and standing continue Solu-Medrol IV q.i.d. , continue supportive care with anti allergics and cough medications. mild acute respiratory failure noted to have O2 sat 89% with ambulation, at rest O2 sat 90-92,continue O2 support and wean gradually patient not on home ox ygen DVT prophylaxis:? Lovenox Code status:? Full code patient will need continued inpatient hospitalization due to sepsis related to community-acquired pneumonia on IV antibiotics with persistent shortness of breath / bilateral expiratory wheeze. Quality Stroke Does the patient have a stroke diagnosis?: No VTE Prior VTE?: No VTE Risk Level:: Medical - moderate - high VTE Device Contraindication: Treatment Not Indicated VTE Drug Contraindication: N/A - Med Ordered
[2022-02-11] MEDS: cefTRIAXone sodium 1 GM in 0.9 % Sodium Chloride 100 ML IV (19:09)
[2022-02-11] MEDS: Azithromycin 500 MG TABLET PO (20:38)
[2022-02-11] MEDS: Enoxaparin Sodium 40 MG/0.4 ML SYRINGE SUBCUT (20:38)
[2022-02-12 00:43] VITALS: BP 137/59; PULSE 84; TEMP 36.8; O2SAT 91
[2022-02-12] MEDS: Melatonin 3 MG TABLET 6 MG PO (00:51)
[2022-02-12 04:02] VITALS: BP 103/51; PULSE 72; TEMP 36.8; O2SAT 97
[2022-02-12] MEDS: methylPREDNISolone Sod Succ 40 MG/ML VIAL IVPUSH ×2 (06:03→09:52)
[2022-02-12] MEDS: Famotidine 20 MG TABLET PO (09:52)
[2022-02-12] MEDS: 0.9 % Sodium Chloride Flush 3 ML SYRINGE IVFLUSH (09:55)
--- NOTE | 2022-02-12 10:13 | P.DS_ITS ---
DS: Providers Provider Date of Service: 02/12/22 Date of admission: 02/10/22 19:16 Primary care physician: None Physician DS: Diagnosis Discharge Diagnosis (1) Asthma exacerbation: Status: Acute (2) Community acquired pneumonia: Status: Acute DS: Summary Hospital Course Hospital Course: Chief Complaint: Shortness of breath 31-year-old male with a past medical history of cannabis use presented to the hospital with a chief complaint of shortness of breath.? Patient reported that he has been having shortness over the past 1 week which has been gradually worsening.? Mentioned that he tried nebulizers at home with no significant improvement.? For the past 2 days he has been having increase the symptoms as noted with cough. Denies any fevers and chills.? Denies any sputum production Denies any sick contacts.? Denies any recent travel.? Denies any chest pain palpitations lightheadedness or dizziness.? Denies any GI symptoms.? Review of all other systems is negative except mentioned above ER course: Per ER team patient on presentation noted to be in mild respiratory distress, tachypneic, tachycardic; D-dimer was negative; EKG was nonischemic; troponin negative; patient noted to have bilateral inspiratory and expiratory wheezes; patient was saturating 89% upon ambulation; patient was given nebulizations steroids; chest x-ray showed possible pneumonia/increased interstitial markings; given antibiotics.? Admitted for further management.? hospital course 31-year-old male with a past medical history of cannabis use presented to the hospital with a chief complaint of shortness of breath/cough, noted to have mild hypoxia chest x-ray showed early left lower lobe pneumonia patient admitted to [facility] with a diagnosis of?Sepsis due to community-acquired pneumonia,?patient met sepsis criteria due to tachypnea, tachycardia related to pneumonia, afebrile ,with normal WBC patient treated with IV ceftriaxone and azithromycin blood cultures x2 were negative, influenza a and COVID-19 negative, patient responded well to above treatment therefore being discharged home on by mouth Ceftin and azithromycin to finish the course of antibiotics. ? In regard to Acute asthma exacerbation, and mild hypoxia, with history of childhood asthma, sob exacerbated likely by exposure to pets, patient treated with scheduled and as needed DuoNeb updraft, and IV Solu Medrol, shortness of breath and cough significantly improved, oxygenation is stable, therefore will discharge him on prednisone 20 mg daily for 3 more days, recommend to continue DuoNeb 4 times a day and use as needed albuterol. Recommend to avoid allergens, since likely symptoms exacerbated after being exposed to cat and dog at sister's house. Time Spent with Patient Time attestation: Total time spent providing and/or coordinating discharge services: Discharge coordination time: Greater than 30 minutes Quality: Stroke Does the patient have a stroke diagnosis?: No Physical Exam Vital Signs: Vital Signs: Last Vital Signs Temp 98.3 F 02/12/22 04:02 Pulse 72 02/12/22 04:02 Resp 15 02/11/22 23:09 BP 103/51 L 02/12/22 04:02 Pulse Ox 97 02/12/22 04:02 BMI result Body Mass Index 22.8 Const: Other: eneral? awake alert coughing,no acute distress.? right facial swelling improved Neck supple no JVD. CVS? regular rate rhythm, Respiratory lungs? good air entry bilaterally, no wheeze, no use of accessory muscles Gastrointestinal abdomen soft, nontender, bowel sounds audible Extremities no edema. Neuro nonfocal Skin no rash psych appropriate affect DS: Data Data Completed and Pending Labs on day of discharge: Preliminary micro results at discharge 02/10/22 17:53 Blood Culture - Preliminary Blood - Venous No growth after 24 hours. 02/10/22 17:23 Blood Culture - Preliminary Blood - Venous No growth after 24 hours. Discharge Plan Discharge Patient Disposition: Home, Self-Care Discharge Diagnosis: sepsis due to pneumonia asthma exacerbation Referrals: Physician,None [Primary Care Provider] - 1 Week Discharge Medications: New benzonatate 100 mg Capsule 100 mg PO TID PRN (Reason: Cough) Qty: 20 0RF azithromycin 500 mg Tablet 500 mg PO Q24H Qty: 3 0RF cefuroxime axetil 500 mg tablet 500 mg PO BID Qty: 6 0RF prednisone 20 mg tablet 20 mg PO DAILY Qty: 3 0RF albuterol sulfate 90 mcg/actuation HFA aerosol inhaler 2 puff inhalation Q4-6H PRN (Reason: shortness of breath) Qty: 8.5 0RF Discharge Orders: Discharge Order (Routine); Ordered 02/12/22 Ordered By: Chema Rinaldi Diet: advance to usual diet Activity on Discharge: As tolerated Stand Alone Forms: Patient Portal Discharge page Care Plan Goals: shortness of breath improved take prednisone 20 mg daily for 3 days, take antibiotics as prescribed for 3 more days use duoneb nebulizer treatment 4 times a day and use albuterol as needed for shortness of breath avoid exposure to animal dander. Health Concerns: Avoid allergens Plan of Treatment: outpatient follow-up with primary care physician Assessment: per discharge
--- NOTE | 2022-02-12 10:22 | MHC.CM.PN ---
pt dcd prior to being seen by cm dc plan is home no skilled services ordered by
--- NOTE | 2022-02-12 11:47 | PC.NURSE ---
pt alert and oriented, vss, denies pain, no sob, dizziness, headache. no n/v. pt given breakfast, meds given as documented. pt medically cleared for discharge.
== END 2022-02-12 13:23 | disposition home or self-care (01) | DRG 720 ==
LOC: HO.ED 17:53 → HO.EDOVER 19:24
PROVIDERS: Nurse Practitioner Family; Physician Assistant; Admitting Provider Hospitalist; Emergency Provider Emergency Medicine; Visit Provider Hospitalist
DX: A41.9 Sepsis, unspecified organism (principal); J96.01 Acute respiratory failure with hypoxia; J45.901 Unspecified asthma with (acute) exacerbation; J32.9 Chronic sinusitis, unspecified; J18.9 Pneumonia, unspecified organism; F17.210 Nicotine dependence, cigarettes, uncomplicated; Z20.822 Contact with and (suspected) exposure to COVID-19; Z71.6 Tobacco abuse counseling; Z79.899 Other long term (current) drug therapy
CPT/HCPCS: 36415; 71045; 80053; 80307; 82728; 83605; 83615; 83880; 84145; 84484; 85025; 85379; 85610; 85730; 87040; 87502; 87635; 93005; 94640; 96365; 96366; 96375; 99285; 99291; J0696; J1650; J2920; J2930; J3475

== ENCOUNTER 2025-10-24 10:30 | Outpatient (AMB) | payer OTHER, SELFPAY ==
--- NOTE | 2025-10-24 10:35 | A.OFFPC_ITS ---
Vital Signs 10/24/25 10:42 Height 5 ft 6.75 in Weight 147 lb 4 oz BMI 23.2 BP 110/80 Respiration 14 Pulse 93 Pulse Source Pulse Oximeter Temp 97.8 F Temp Source Temporal Artery Scan Pulse Oximetry (%) 97 Oxygen Delivery Method Room Air Intake Visit Reasons: [employer]- Establish Care Histology Teacher Required: No Accompanied by: Self / Same As Patient Allergies No Known Allergies Allergy (Verified 10/24/25 10:35) Tobacco use date assessed: 10/24/25 Dental Screening Dental Screen Date: 10/24/25 Did you have a dental visit in the last 12 months?: Yes Did you have a dental problem in the last 6 months where you did not have access to dental care?: No Was dental information given to patient?: Patient has dentist HPI HPI Comments History of Present Illness Details History of Present Illness The patient is a 35 year old male presenting for a new patient visit to establish primary care. He reports he has not seen a primary care provider in two decades. He was reportedly told he had congenital heart failure at [facility] during a visit for swollen extremities last summer. He had electrodes placed but does not recall any cardiac imaging being performed at that time. His history includes asthma, for which he was hospitalized a few years ago for an exacerbation. He has a detached retina in his right eye, for which he sees an salvage cutter. He also reports hair loss, fatigue, and losing his voice for weeks at a time, which started last summer. The patient reports a childhood history in a [place] [facility] of rickets and an abdominal abscess. He reports he has not had any past surgeries. He states he received his COVID-19 and influenza shots. Medical History: - Asthma with hospitalization for an exa cerbation a few years ago. - Detached retina, right eye - History of rickets in childhood. - History of abdominal abscess in [facility]. Surgical History: - None reported. Medications: - The patient reports taking no medicati ons. - He uses an inhaler for asthma if one i s available. Family History: - Denies any family history of heart dis ease, diabetes, or cancer. 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 - Substance Use: - Tobacco: Smokes rarely. - Alcohol: Drinks once a week. - Marijuana: Smokes about one joint per week. - Illicit Drugs: Denies use of heroin or cocaine. [facility] Medical History (Updated 10/24/25 @ 11:19 by Rasta Velasquez MD) Annual physical exam History of congestive cardiomyopathy Hair loss Retinal detachment Rickets, Asthma Social History Housing: House Alcohol intake: current Alcohol intake frequency: 0-2 drinks per day Patient Tobacco Use Status: Current someday Tobacco user e-Cigarette/Vaping Use: Never Used Substance Use Type: Marijuana service: No Current occupational status: unemployed Cognitive needs: No Hearing needs: No Vision needs: Yes (Rx glasses) Questionnaire PHQ-9 Over the last 2 weeks, how often have you been bothered by any of the following problems? 1. Little interest or pleasure in doing things: not at all 2. Feeling down, depressed, or hopeless: not at all 3. Trouble falling or staying asleep, or sleeping too much: not at all 4. Feeling tired or having little energy: not at all 5. Poor appetite or overeating: not at all 6. Feeling bad about yourself - or that you are a failure or have let yourself or your family down: not at all 7. Trouble concentrating on things, such as reading the newspaper or watching television: not at all 8. Moving or speaking so slowly that other people could have noticed. Or the opposite - being so fidgety or restless that you have been moving around a lot more than usual: not at all 9. Thoughts that you would be better off or of hurting yourself in some way: not at all Total score: 0 Depression Screening Interpretation: Negative Depression Screening Done: Yes 57299 - PHQ-9 Billing: Yes Source: Developed by Drs. Harlan Turner, Samanta Moon, Daryl Lisa and colleagues, with an educational parag from [employer]. Thrive Questionnaire Date Thrive assessed: 10/24/25 I am a: Patient What is your living situation today?: I have a steady place to live Within the past 12 months, did the food you bought not last and you didn't have the money to get more?: Never true Within the past 12 months, did you worry whether your food would run out before you got money to buy more?: Never true Do you have trouble paying for medicines?: No Do you have trouble getting transportation to medical appointments?: No Do you have trouble paying your heating and electricity bill?: No Do you have trouble taking care of your child, family member or friend?: No Do you have trouble with day-to-day activities such as bathing, preparing meals, shopping, managing finances, etc.?: No Are you currently unemployed and looking for a job?: No Are you interested in more education?: No THRIVE Score: 0 AUDIT C Alcohol Use Questionnaire (AUDIT-C) 1. How often do you have a drink containing alcohol?: Never Total Score: 0 Score Reviewed/Action Taken: Yes MATTEO-7 AMB Questionnaire MATTEO-7 Date MATTEO - 7 assessed: 10/24/25 Feeling nervous, anxious, or on edge: 0 = Not at all Not being able to stop or control worryin = Not at all Worrying too much about different things: 0 = Not at all Trouble relaxin = Not at all Being so restless that it is hard to sit still: 0 = Not at all Becoming easily annoyed or irritable: 0 = Not at all Feeling afraid as if something awful might happen: 0 = Not at all Total MATTEO-7 score (0-4 normal; 5-9 mild; 10-14 moderate; 15-21 severe): 0 Source: Developed by Drs. Harlan Turner, Samanta Moon, Daryl Lisa and colleagues, with an educational parag from [employer]. MATTEO-7 Assessment Billing MATTEO-7 Assessment Tool: MATTEO-7 Assessment 53787 Review of Systems Narrative Review of Systems - General: Reports fatigue. - Integumentary: Reports hair loss. - Cardiovascular: Reports a history of swollen extremities. - Respiratory: Denies waking up coughing. - ENT: Reports losing his voice for weeks at a time. - Constitutional: Denies fever and chills. All systems reviewed & are unremarkable except as reviewed in HPI and above Physical exam (Primary Care) Vital Signs: Last Vital Signs Temp 97.8 F 10/24/25 10:42 Pulse 93 10/24/25 10:42 Resp 14 10/24/25 10:42 BP 110/80 10/24/25 10:42 Pulse Ox 97 10/24/25 10:42 Oxygen Delivery Method Room Air 10/24/25 10:42 BMI result Body Mass Index 23.2 Tobacco/Smoking Status: Tobacco use Status Tobacco use date assessed 10/24/25 10/24/25 10:43 Patient Tobacco Use Status Current someday Tobacco 10/24/25 10:43 e-Cigarette/Vaping Use Never Used 10/24/25 10:43 PHQ-9: PHQ-9 Score PHQ-9: Total score 0 10/24/25 11:16 Depression Screening Interpretation: Negative Thrive Assessment: Date of Thrive Assessment Date Thrive assessed 10/24/25 10/24/25 11:16 Narrative Physical Exam General: +Alert and oriented, Well nourished, No acute distress. Eye: Pupils are equal, round and reactive to light, Intact accommodation, Extraocular movements are intact, Normal conjunctiva, Vision unchanged, Detached retina in the right eye, Blind in the right eye. HENT: Normocephalic, Atraumatic, Tympanic membranes are clear, Normal hearing, Oral mucosa is moist, No pharyngeal erythema, Ear canals patent. Respiratory: Lungs CTA bilaterally, No wheeze, Respirations are non-labored. Cardiovascular: Regular rate, Regular rhythm, S1 auscultated, S2 auscultated, No murmur, Good pulses equal in all extremities, Normal peripheral perfusion, No edema. Gastrointestinal: Soft, Non-tender, Non-distended, Normal bowel sounds, No organomegaly. Musculoskeletal: Normal range of motion, Normal strength, No tenderness, No swelling, No deformity, Normal gait. Integumentary: Warm, Dry, [place], Intact. Neurologic: Alert, Oriented, Normal sensory, Normal motor function, No focal defects, Cranial Nerves II-XII are grossly intact, Normal deep tendon reflexes. Psychiatric: Cooperative, Appropriate mood & affect, Normal judgment. Coding Level of Care Code New Pt Level 3 (07161) New Pt Prev Care 18-39yr(87245 Diagnoses Right retinal detachment H33.21 Laterality: right Hair loss L65.9 History of congestive cardiomyopathy Z86.79 Annual physical exam Z00.00 Additional Codes MATTEO-7 Assessment Billing - MATTEO-7 Assessment Tool: MATTEO-7 Assessment 97804 ([id number]) PHQ-9 - 86451 - PHQ-9 Billing: Yes ([id number]) Comment [id number] Assessment & Plan Assessment & Plan (1) Retinal detachment: Comment: - Patient has a history of retinal detachment in the right eye and is under the care of an salvage cutter. - No new intervention is planned at this visit. Code(s): H33.20 - Serous retinal detachment, unspecified eye Category: Medical Qualifiers: Laterality: right Qualified Code(s): H33.21 - Serous retinal detachment, right eye (2) Hair loss: Comment: - The patient is concerned about recent hair loss. - This may be related to stress, vitamin deficiencies, or most commonly, male pattern baldness. - Further evaluation will depend on lab results. - The patient was educated that this is often a genetic and hormonal process. Code(s): L65.9 - Nonscarring hair loss, unspecified Category: Medical (3) History of congestive cardiomyopathy: Comment: - The patient was reportedly diagnosed with congenital heart failure after presenting with swollen extremities. - Exam today is negative for lower extremity edema or signs of acute heart failure. - The diagnosis is questionable as no cardiac imaging was performed. - An echocardiogram will be ordered to evaluate heart function. Code(s): Z86.79 - Personal history of other diseases of the circulatory system Category: Medical (4) Annual physical exam: Comment: - The patient is a 35-year-old male establishing care after not seeing a primary care provider for two decades. - The plan includes a comprehensive blood workup to establish a baseline, including counts, electrolytes, and sugars. - The patient has received his COVID and flu shots. - Will follow up in 6 months to review results and for continued care. Code(s): Z00.00 - Encounter for general adult medical examination without abnormal findings Category: Medical Plan: Health Maintenance: - Immunizations: Patient is up-to-date with COVID-19 and influenza vaccinations. - Screening: Comprehensive blood work will be performed. Patient was informed and verbally consented to the use of an ambient scribe for clinic note documentation during this visit. Vital signs reviewed. Comprehensive history, review of systems, and physical exam completed. Medications, allergies, and problem list reviewed and updated. Counseling provided on nutrition, regular exercise, sleep hygiene, and mode ration of alcohol use. Discussed age-appropriate screenings (mammogram, colonoscopy, Pap, bone density) and immunizations (flu, COVID, shingles, Tdap). Screened for depression, fall risk, and home safety; no current concerns. Discussed stress management, dental and vision care, and importance of ongoing preventive follow-up. Routine labs ordered for metabolic and lipid screening. Patient educated on healthy lifestyle and agrees with the plan. Plan I have discussed with the patient that this is his first visit in many years, and we will be conducting a full panel of blood tests to establish a baseline for his health. Regarding his reported history of heart failure, I explained that his current physical exam does not show signs of this condition, and that a diagnosis cannot be made without imaging. I have ordered an echocardiogram to get a clear picture of his heart's function. We also discussed his hair loss, and I explained that it is commonly due to genetic factors such as male pattern baldness, but we will also check for vitamin deficiencies in his blood work. The patient was advised to proceed to the lab for blood work today. He will be contacted regarding the results and scheduling for his echocardiogram. A follow- up appointment is scheduled for six months. Orders: Orders Hemoglobin A1c Today Z00.00 - Encounter for general adult medical examination without abnormal findings Microalbumin, Random (w Creat) Today Z00.00 - Encounter for general adult medical examination without abnormal findings Syphilis Screen Today Z00.00 - Encounter for general adult medical examination without abnormal findings TSH reflex Free T4 Today Z00.00 - Encounter for general adult medical examination without abnormal findings Vitamin D 25-OH Total Today Z00.00 - Encounter for general adult medical examination without abnormal findings CA echo transthoracic complete Today R06.00 - Dyspnea, unspecified Complete Blood Count Auto Diff Today Z00.00 - Encounter for general adult medical examination without abnormal findings Comprehensive Met. Panel Today Z00.00 - Encounter for general adult medical examination without abnormal findings Hepatitis A,B,C Profile Today Z00.00 - Encounter for general adult medical exa mination without abnormal findings HIV Ab/Ag Today Z00.00 - Encounter for general adult medical examination without abnormal findings Lipid Panel Today Z00.00 - Encounter for general adult medical examination without abnormal findings Medications: Discontinued azithromycin Discontinued Reason: Patient Completed Course 500 mg PO Q24H 3 tabs 0RF benzonatate Discontinued Reason: Patient Completed Course 100 mg PO TID PRN 20 caps 0RF Cough cefuroxime axetil Discontinued Reason: Patient Completed Course 500 mg PO BID 6 tabs 0RF prednisone Discontinued Reason: Patient Completed Course 20 mg PO DAILY 3 tabs 0RF albuterol sulfate 90 mcg/actuation Discontinued Reason: Patient Completed Course 2 puffs inhalation Q4-6H PRN 8.5 grams 0RF shortness of breath Patient Instructions: - Go to the lab across the [place] to have your blood drawn today. - Someone from our office will call you to schedule an ultrasound of your heart (echocardiogram). - We will contact you if there are any abnormal results from your blood work. - Do not worry excessively about your symptoms; let's wait for the test results. - Your hair loss is likely due to normal genetic factors called male pattern baldness. - Please schedule a follow-up appointment at the front end developer designer for six months from now.
[2025-10-24 10:42] VITALS: BP 110/80; PULSE 93; RESP 14; TEMP 36.6; O2SAT 97; BMI 23.2
== END 2025-10-24 11:03 | disposition home or self-care (01) ==
PROVIDERS: Visit Provider Student in an Organized Health Care Education/Training Program
DX: Z00.00 Encounter for general adult medical examination without abnormal findings (principal); H33.21 Serous retinal detachment, right eye; L65.9 Nonscarring hair loss, unspecified; Z86.79 Personal history of other diseases of the circulatory system

== ENCOUNTER → 2025-10-24 10:30 | Outpatient (BNVA) | payer OTHER, SELFPAY | PROVIDERS: Visit Provider Student in an Organized Health Care Education/Training Program | DX: Z00.00 Encounter for general adult medical examination without abnormal findings (principal); L65.9 Nonscarring hair loss, unspecified; Z86.79 Personal history of other diseases of the circulatory system; H33.21 Serous retinal detachment, right eye; Z13.31 Encounter for screening for depression; Z13.39 Encounter for screening examination for other mental health and behavioral disorders | CPT/HCPCS: 96127; 99385 ==